=== PATIENT | male | born 1995 | race Caucasian/White ===

== ENCOUNTER 2023-08-31 11:28 | Emergency (ER) | payer BC, OTHER ==
[2023-08-31] MEDS ORDERED: FENTANYL CITRATE/PF 50 MCG/ML VIAL ONE (11:32)
[2023-08-31] MEDS ORDERED: SODIUM CHLORIDE 0.9% 500 ML INFUS.BAG IV ONE (11:33)
[2023-08-31] MEDS ORDERED: DIPHTH,PERTUSS(ACELL),TET 0.5 ML DISP.SYRIN IM ONE (11:33)
[2023-08-31 11:46] VITALS: BMI 29.0
[2023-08-31 12:09] LABS: BASO % 0.6 % (0-2.0); EOS % 1.1 % (0-4.5); HEMATOCRIT 50.8 % (35.4-49); LYMPH % 43.4 % (8-40); MCH 29.1 pg (25.7-33.7); MCHC 33.4 g/dl (32.0-35.9); MEAN PLT VOLUME 9.3 fl (7.5-11.1); MONO % 8.1 % (3.8-10.2); NEUT % 46.8 % (42.8-82.8); PLATELET COUNT 238 10^3/uL (134-434); RBC 5.84 M/mm3 (4.00-5.60); RDW 14.4 % (11.9-15.9); WHITE BLOOD COUNT 8.9 K/mm3 (4.0-10.0)
[2023-08-31 12:12] VITALS: RESP 18
[2023-08-31 12:15] LABS: INR 1.01 (0.83-1.09); PROTHROMBIN TIME (PATIENT) 11.7 SEC (9.7-13.0)
[2023-08-31 12:18] LABS: ACTIVATED PTT 26.6 SECONDS (25.2-36.5)
[2023-08-31 12:35] VITALS: BP 119/70; PULSE 94; TEMP 98.4
[2023-08-31 12:35] LABS: POTASSIUM 3.7 mmol/L (3.5-5.1)
[2023-08-31 12:37] LABS: ALBUMIN 4.4 g/dl (3.4-5.0); BLOOD UREA NITROGEN 13.2 mg/dL (7-18); CALCIUM 9.1 mg/dL (8.5-10.1)
[2023-08-31 12:40] LABS: CREATININE 1.2 mg/dL (0.55-1.3)
[2023-08-31 12:42] LABS: BILIRUBIN,TOTAL 0.9 mg/dL (0.2-1); TOT PROT 8.1 g/dl (6.4-8.2)
== END 2023-08-31 12:42 | disposition short-term general hospital (02) ==
LOC: JER 11:28
PROC: 3E033GC Introduction of Other Therapeutic Substance into Peripheral Vein, Percutaneous Approach (ICD-10-PCS; principal; 2023-08-31)
PROC: 3E0234Z Introduction of Serum, Toxoid and Vaccine into Muscle, Percutaneous Approach (ICD-10-PCS; 2023-08-31)
DX: S41.001A Unspecified open wound of right shoulder, initial encounter (principal); M25.511 Pain in right shoulder; W34.00XA Accidental discharge from unspecified firearms or gun, initial encounter
CPT/HCPCS: 36415; 71045-TC-FY; 73060-TC-RT-FY; 80053; 85025; 85610; 85730; 86850; 86900; 86901; 90715; 93005; 93010; 99285-25